=== PATIENT | male | born 1995 | race American Indian/Alaskan Native ===

== ENCOUNTER 2020-09-18 06:55 | Emergency (ER) | payer OTHER ==
[2020-09-18] MEDS ORDERED: IBUPROFEN 800 MG TAB PO ONE (07:35)
[2020-09-18] MEDS ORDERED: ACETAMINOPHEN 500 MG TAB PO ONE (07:35)
--- NOTE | 2020-09-18 07:39 | Emergency Department Report ---
ED Fall HPI - General Chief Complaint: Fall Stated Complaint: FALL, HEAD PAIN Time Seen by Provider: 09/18/20 07:30 Source: patient, EMS Mode of arrival: Stretcher - History of Present Illness Initial Comments: Chief complaint: Fall, head injury, neck pain HPI: This is a 24-year-old male without significant past medical history presents with head injury and neck pain after fall. Patient recalls slipping on wet pavement. He fell. He does remember requiring assistance getting up. He does not remember being transported to the emergency department. He has right- sided neck pain. He also has right arm and right leg tingling. Pain in the neck 4-5/10 in severity. No radiation. No other injuries. MD Complaint: fall -: Sudden, This morning Fall From: standing When Fall Occurred: 1 hour [employer] Fall Witnessed: yes, by bystander Place Fall Occurred: work Loss of Consciousness: unsure Prolonged Down Time?: no Symptoms Prior to Fall: none Location: head, neck Location - Extremities: Right: Arm, Leg Severity: mild Quality: dull Context: tripped/slipped Associated Symptoms: other (Tingling in right arm and leg) - Related Data Previous Rx's Medication Instructions Recorded Last Taken Type Cyclobenzaprine [Flexeril] 10 mg PO TID PRN #20 tablet 09/18/20 Unknown Rx Ibuprofen [Motrin 800 MG tab] 800 mg PO Q8HR PRN #20 tablet 09/18/20 Unknown Rx Allergies Allergy/AdvReac Type Severity Reaction Status Date / Time No Known Allergies Allergy Verified 09/18/20 07:17 ED Review of Systems ROS: Stated complaint: FALL, HEAD PAIN Other details as noted in HPI Comment: All other systems reviewed and negative Constitutional: denies: fever, malaise Respiratory: denies: cough, shortness of breath Cardiovascular: denies: chest pain Gastrointestinal: denies: abdominal pain, nausea, vomiting Neurological: denies: headache, weakness, numbness, paresthesias, confusion, abnormal gait ED Past Medical Hx - Past Medical History Previous Medical History?: No - Surgical History Past Surgical History?: Yes Additional Surgical History: left shoulder, left ankle - Social History Smoking Status: Never Smoker Substance Use Type: None - Medications Home Medications: Home Medications Medication Instructions Recorded Confirmed Last Taken Type Cyclobenzaprine [Flexeril] 10 mg PO TID PRN #20 tablet 09/18/20 Unknown Rx Ibuprofen [Motrin 800 MG tab] 800 mg PO Q8HR PRN #20 tablet 09/18/20 Unknown Rx ED Physical Exam - General Limitations: No Limitations General appearance: alert, in no apparent distress - Head Head exam: Present: atraumatic, normocephalic - Eye Eye exam: Present: normal appearance - ENT ENT exam: Present: mucous membranes moist - Neck Neck exam: Present: normal inspection, tenderness, full ROM, other (Tenderness over right SCM no spinal tenderness). Absent: meningismus, lymphadenopathy, thyromegaly - Respiratory Respiratory exam: Present: normal lung sounds bilaterally. Absent: respiratory distress, wheezes, rales, rhonchi - Cardiovascular Cardiovascular Exam: Present: regular rate, normal rhythm, normal heart sounds. Absent: systolic murmur, diastolic murmur, rubs, gallop - GI/Abdominal GI/Abdominal exam: Present: soft, normal bowel sounds. Absent: distended, tenderness, guarding, rebound - Rectal Rectal exam: Present: deferred - Extremities Exam Extremities exam: Present: normal inspection - Neurological Exam Neurological exam: Present: alert, oriented X3 - Psychiatric Psychiatric exam: Present: normal affect, normal mood - Skin Skin exam: Present: warm, dry, intact, normal color. Absent: rash ED Course Vital Signs 09/18/20 07:18 Temperature 98.1 F Pulse Rate 52 L Respiratory 17 Rate Blood Pressure 127/85 O2 Sat by Pulse 99 Oximetry ED Medical Decision Making - Radiology Data Radiology results: report reviewed Patient Name: ELA OBANDO Gender: Male Date of : 1995 Referring Provider: SJ KENNEDY Organization: [facility] Accession Number: [id number] Requested Date: September 18, 2020 07:34 Report Status: Final Requested Procedure: 1 Procedure Description: CT cervical spine wo con Modality: CT Findings Reporting MD: José Luis Rutledge Dictation Time: September 18, 2020 07:56 Composition Roofer: Not available C 40A Crew Chief Date: CT CERVICAL SPINE WITHOUT CONTRAST INDICATION: fall neck pain arm tingling. TECHNIQUE: Axial imaging performed through the cervical spine without the use of contrast. Sagittal and coronal reconstructed images were also reviewed. All CT scans at this location are performed using CT dose reduction for ALARA by means of automated exposure control. COMPARISON: None FINDINGS: Alignment: Spinal alignment is normal. Bones: There is no acute osseous abnormality. No significant spondylosis. No bone lesion. Soft tissues: No acute or significant incidental soft tissue abnormality. IMPRESSION: No acute abnormality. Signer Name: José Luis Rutledge Jr, MD Signed: 09/18/2020 7:56 AM Workstation Name: [id number] Patient Name: ELA OBANDO Gender: Male Date of : 1995 Referring Provider: SJ KENNEDY Organization: [facility] Accession Number: [id number] Requested Date: September 18, 2020 07:34 Report Status: Final Requested Procedure: 1 Procedure Description: CT head/brain wo con Modality: CT Findings Reporting MD: José Luis Rutledge Dictation Time: September 18, 2020 07:47 Composition Roofer: Not available C 40A Crew Chief Date: CT HEAD WITHOUT CONTRAST INDICATION / CLINICAL INFORMATION: head injury loss of consciousness. TECHNIQUE: Axial imaging performed from the skull apex through the skull base without the use of contrast. Sagittal and coronal reformatted images. All CT scans at this location are performed using CT dose reduction for ALARA by means of automated exposure control. COMPARISON: None available. FINDINGS: CEREBRAL PARENCHYMA: No significant abnormality. No acute territorial infarct. HEMORRHAGE: None. EXTRA-AXIAL SPACES: Normal in size and morphology for the patient's age. VENTRICULAR SYSTEM: Normal in size and morphology for the patient's age. MIDLINE SHIFT OR HERNIATION: None. CEREBELLUM / BRAINSTEM: No significant abnormality. CALVARIUM: No significant abnormality. ORBITS: Normal as visualized. PARANASAL SINUSES / MASTOID AIR CELLS: Normal as visualized. SOFT TISSUES of HEAD: No significant abnormality. ADDITIONAL FINDINGS: None. IMPRESSION: No acute intracranial abnormality. Signer Name: José Luis Rutledge Jr, MD Signed: 09/18/2020 7:47 AM Workstation Name: [id number] - Medical Decision Making 1. Closed head injury with loss of consciousness, amnesia: CT head without evidence of acute traumatic injury. 2. Neck pain with paresthesias in the extremities: Neurologically intact. CT cervical spine negative for acute traumatic injury. On reexamination patient did not have spinal tenderness. Normal strength in all 4 extremities. Patient prescribed ibuprofen and Flexeril. Referred to outpatient medicine phys ician as needed. Critical care attestation.: If time is entered above; I have spent that time in minutes in the direct care of this critically ill patient, excluding procedure time. ED Disposition Clinical Impression: Closed head injury with brief loss of consciousness, Cervical strain, acute, Fall from slipping on slippery surface Disposition: - TO HOME OR SELFCARE Is pt being admited?: No Does the pt Need Aspirin: No Condition: Stable Instructions: Head Injury, Adult, Cervical Sprain Prescriptions: Cyclobenzaprine [Flexeril] 10 mg PO TID PRN #20 tablet PRN Reason: Muscle Spasm Ibuprofen [Motrin 800 MG tab] 800 mg PO Q8HR PRN #20 tablet PRN Reason: Pain , Severe (7-10) Referrals: NAVID WATT MD [Staff Physician] - 3-5 Days Forms: Work/School Release Form(ED)
--- NOTE | 2020-09-18 08:51 | Cat Scan Report ---
CT HEAD WITHOUT CONTRAST INDICATION / CLINICAL INFORMATION: head injury loss of consciousness. TECHNIQUE: Axial imaging performed from the skull apex through the skull base without the use of cont rast. Sagittal and coronal reformatted images. All CT scans at this location are performed using CT dose reduction for ALARA by means of automated exposure control. COMPARISON: None available. FINDINGS: CEREBRAL PARENCHYMA: No significant abnormality. No acute territorial infarct. HEMORRHAGE: None. EXTRA-AXIAL SPACES: Normal in size and morphology for the patient's age. VENTRICULAR SYSTEM: Normal in size and morphology for the patient's age. MIDLINE SHIFT OR HERNIATION: None. CEREBELLUM / BRAINSTEM: No significant abnormality. CALVARIUM: No significant abnormality. ORBITS: Normal as visualized. PARANASAL SINUSES / MASTOID AIR CELLS: Normal as visualized. SOFT TISSUES of HEAD: No significant abnormality. ADDITIONAL FINDINGS: None. IMPRESSION: No acute intracranial abnormality. Signer Name: José Luis Rutledge Jr, MD Signed: 09/18/2020 8:47 AM Workstation Name: [id number]
--- NOTE | 2020-09-18 09:00 | Cat Scan Report ---
CT CERVICAL SPINE WITHOUT CONTRAST INDICATION: fall neck pain arm tingling. TECHNIQUE: Axial imaging performed through the cervical spine without the use of contrast. Sagittal and coronal reconstructed images were also reviewed. All CT scans at this location are performed us ing CT dose reduction for ALARA by means of automated exposure control. COMPARISON: None FINDINGS: Alignment: Spinal alignment is normal. Bones: There is no acute osseous abnormality. No significant spondylosis. No bone lesion. Soft tissues: No acute or significant incidental soft tissue abnormality. IMPRESSION: No acute abnormality. Signer Name: José Luis Rutledge Jr, MD Signed: 09/18/2020 8:56 AM Workstation Name: [id number]
[2020-09-18 09:26] VITALS: BP 130/83
== END 2020-09-18 09:30 | disposition home or self-care (01) ==
LOC: ED 06:55
DX: S06.9X9A Unspecified intracranial injury with loss of consciousness of unspecified duration, initial encounter (principal); S16.1XXA Strain of muscle, fascia and tendon at neck level, initial encounter; Z98.890 Other specified postprocedural states; Z79.899 Other long term (current) drug therapy; W01.0XXA Fall on same level from slipping, tripping and stumbling without subsequent striking against object, initial encounter; Y93.89 Activity, other specified; Y92.89 Other specified places as the place of occurrence of the external cause; Y99.0 Civilian activity done for income or pay
CPT/HCPCS: 70450; 72125

== ENCOUNTER 2020-11-28 19:57 | Observation (INO) | payer OTHER ==
--- NOTE | 2020-11-28 21:02 | Event Note ---
ED Screening Note Date of service: 11/28/20 Time: 20:57 ED Screening Note: Patient is a 25-year-old -[place] male with no past medical history presents to the ED with complaint of acute onset persistent left facial numbness and tingling, left upper arm tingling and numbness for the last 2 days. Patient states that when he first experienced the symptoms the symptoms have been persistent, intermittent and waxing and waning. Patient denies cough, chest pain, shortness of breath, change in vision, nausea and vomiting, dizziness, syncope, fall, heavy lifting, back pain, abdominal pain, fever and chills, cough, traumatic injury, heavy lifting, back pain, sore throat, or vomiting and diarrhea or diaphoresis. This initial assessment/diagnostic orders/clinical plan/treatment(s) is/are subject to change based on patients health status, clinical progression and re- assessment by fellow clinical providers in the ED. Further treatment and workup at subsequent clinical providers discretion. Patient/guardian urged not to elope from the ED as their condition may be serious if not clinically assessed and managed. Initial orders include: CBC, CMP, troponin, EKG, chest x-ray
--- NOTE | 2020-11-28 21:37 | XRay Report ---
CHEST 2 VIEWS INDICATION / CLINICAL INFORMATION: chest pain. COMPARISON: None available. FINDINGS: SUPPORT DEVICES: None. HEART / MEDIASTINUM: No significant abnormality. LUNGS / PLEURA: No significant pulmonary or pleural abnormality. No pneumothorax. ADDITIONAL FINDINGS: No significant additional findings. IMPRESSION: 1. No acute findings. Signer Name: Liliane Luong MD Signed: 11/28/2020 9:32 PM Workstation Name: [id number]
[2020-11-28 21:42] LABS: Basophils % (Auto) 0.5 % (0.0-1.8); Eosinophils % (Auto) 0.4 % (0.0-4.3); Hematocrit 43.6 % (35.5-45.6); Hemoglobin 15.2 gm/dl (11.8-15.2); Lymphocytes # (Auto) 2.9 K/mm3 (1.2-5.4); Lymphocytes % (Auto) 49.1 % (13.4-35.0); Mean Corpuscular HGB Conc 35 % (32-34); Mean Corpuscular Volume 82 fl (84-94); Monocytes # (Auto) 0.5 K/mm3 (0.0-0.8); Monocytes % (Auto) 8.7 % (0.0-7.3); Platelet Count 230 K/mm3 (140-440); Red Blood Count 5.32 M/mm3 (3.65-5.03)
[2020-11-28 21:58] LABS: Alanine Aminotransferase 13 units/L (7-56); Albumin 4.7 g/dL (3.9-5); Blood Urea Nitrogen 12 mg/dL (9-20); Hemolysis Index 2
[2020-11-28 22:01] LABS: BUN/Creatinine Ratio 17
[2020-11-28] MEDS ORDERED: SODIUM CHLORIDE 0.9% 500 ML 500 ML IV ONE (23:18)
--- NOTE | 2020-11-28 23:19 | Emergency Department Report ---
<BORIS ISAAC - Last Filed: 11/29/20 01:34> ED General Adult HPI - General Chief complaint: Chest Pain Stated complaint: My left face is numb and tingling, left arm is tingling, and my chest feels like it is caving in PUI?: No Time Seen by Provider: 11/28/20 22:54 Source: patient, RN notes reviewed, old records reviewed Mode of arrival: Ambulatory Limitations: No Limitations - History of Present Illness Initial comments: The patient was evaluated in the emergency department for symptoms described in the history of present illness. He/she was evaluated in the context of the global COVID-19 pandemic, which necessitated consideration that the patient might be at risk for infection with the virus that causes COVID-19. Institutional protocols and algorithms that pertain to the evaluation of p atients at risk for COVID-19 are in a state of rapid change based on information released by regulatory bodies including the CDC and federal and state organizations. These policies and algorithms were followed during the patient's care in the emergency department. Please note that these policies, procedures and recommendations changed on a rapid basis. The patient is a 25-year-old gentleman who is not known to myself previously. He is right-hand dominant, has a history of body mass index of 37.9, and is COVID-19 vaccinated. The patient presents to the ER with a complaint of feeling like he is having high blood pressure for the past couple weeks (reports that he is checking it at work), but does not have a formal diagnosis of high blood pressure, and over the past 2 to 3 days, having left-sided facial numbness, left arm numbness. He feels like his left arm is very slightly weaker than when compared to his right arm. He denies headache and midline neck pain. He denies abdominal pain. He denies fever, loss of taste and smell, bladder or bowel retention incontinence, and saddle anesthesia. In the past 14 hours, he has developed central nonradiating chest pressure, which does not radiate to the back, arms or neck. It is intermittent and "lasts for a few hours at a time." He denies travel, surgery, leg pain, leg swelling, DVT and pulmonary embolism risk factors. There is no pertinent family history besides high blood pressure that he is aware of. He denies recreational drug use. Of note, this patient was seen here in September of this year for slip and fall, with head and neck trauma. At that time, he had a CT scan of his head and cervical spine which were negative for acute findings. - Related Data Previous Rx's Medication Instructions Recorded Last Taken Type Cyclobenzaprine [Flexeril] 10 mg PO TID PRN #20 tablet 09/18/20 Unknown Rx Ibuprofen [Motrin 800 MG tab] 800 mg PO Q8HR PRN #20 tablet 09/18/20 Unknown Rx Allergies Allergy/AdvReac Type Severity Reaction Status Date / Time No Known Allergies Allergy Verified 09/18/20 07:17 ED Review of Systems Constitutional: other (Denies loss of taste and smell). denies: fever, malaise, weakness Eyes: denies: eye discharge, vision change ENT: denies: epistaxis Respiratory: denies: cough Cardiovascular: chest pain Gastrointestinal: denies: abdominal pain, nausea, vomiting, hematemesis, melena, hematochezia Musculoskeletal: denies: back pain Neurological: weakness, numbness, paresthesias Hematological/Lymphatic: denies: easy bleeding ED Past Medical Hx - Past Medical History Previous Medical History?: Yes Hx Asthma: Yes - Surgical History Past Surgical History?: Yes Additional Surgical History: left shoulder, left ankle left hand surgery - Social History Smoking Status: Never Smoker Substance Use Type: None - Medications Home Medications: Home Medications Medication Instructions Recorded Confirmed Last Taken Type Cyclobenzaprine [Flexeril] 10 mg PO TID PRN #20 tablet 09/18/20 Unknown Rx Ibuprofen [Motrin 800 MG tab] 800 mg PO Q8HR PRN #20 tablet 09/18/20 Unknown Rx ED Physical Exam - General Limitations: No Limitations General appearance: alert, anxious, obese - Head Head exam: Present: atraumatic, normocephalic - Eye Eye exam: Present: normal appearance, PERRL, EOMI. Absent: nystagmus - ENT ENT exam: Present: normal exam, normal orophraynx, mucous membranes moist, TM's normal bilaterally, normal external ear exam, other (No vesicles are noted.) - Neck Neck exam: Present: normal inspection, full ROM. Absent: tenderness, meningismu s - Respiratory Respiratory exam: Present: normal lung sounds bilaterally. Absent: respiratory distress, wheezes, rales, rhonchi, stridor - Cardiovascular Cardiovascular Exam: Present: normal rhythm, bradycardia, normal heart sounds. Absent: tachycardia, irregular rhythm, systolic murmur, diastolic murmur, rubs, gallop - GI/Abdominal GI/Abdominal exam: Present: soft. Absent: distended, tenderness, rebound, rigid, pulsatile mass - Rectal Rectal exam: Present: deferred - Extremities Exam Extremities exam: Present: normal inspection, full ROM, other (2+ pulses noted in the bilateral upper and lower extremities. There is no palpable cord. negative Homans sign. Muscular compartments are soft. The pelvis is stable.). Absent: pedal edema, calf tenderness - Back Exam Back exam: Present: normal inspection. Absent: tenderness, CVA tenderness (R), CVA tenderness (L), paraspinal tenderness, vertebral tenderness - Neurological Exam Neurological exam: Present: alert, oriented X3, normal gait, motor sensory deficit (There is decrease sensation to light touch in the left upper extremity. There is 4 out of 5 strength in the left upper extremity.), reflexes normal (Downgoing plantar reflexes bilaterally. 2+ biceps, triceps, and quadriceps reflexes bilaterally.), other (5 out of 5 strength right arm, and bilateral lower extremities). Absent: CN II-XII intact (There is decreased sensation to light touch in the left face in the left V1, V2 distribution. EOMI. Tongue midline. Shoulder shrug intact bilaterally. Hearing intact bilaterally. Phonating in complete sentences. Visual acuity intact to finger counting, color perception, reading at a close dist) - Psychiatric Psychiatric exam: Present: normal affect, normal mood - Skin Skin exam: Present: warm, dry, intact, normal color. Absent: rash ED Course - Reevaluation(s) Reevaluation #1: 11/29/20 00:51 Differential diagnosis, including the not limited to: Subacute stroke, cervical radiculopathy, carotid dissection, aortic dissection, coronary artery disease, pneumonia, GERD, gastritis, hiatal hernia Assessment and plan: 25-year-old gentleman, who was afebrile, with reassuring vital signs, with exception of elevated blood pressure, clinically sober, presenting to the ER with 48 hours of nonspecific neurologic symptoms, and atypical chest pain that has developed within the past 24 hours. This patient was seen for blunt head and neck trauma September of this year. Given neurologic symptoms, we will obtain CT scan of the brain, and CT angiogram head and neck to evaluate for carotid dissection, large vessel occlusion. The patient is not a TPA candidate as his symptoms have been present for greater than 4.5 hours. His examination at this time is not suggestive of emergent epidural compression. He is not currently tachycardic, tachypneic or hypoxic. He denies DVT and pulmonary embolism risk factors, he is low risk by Wells criteria for pulmonary embolism, and he is PERC negative. He has equal pulses in the upper and lower extremities, no pulsatile abdominal mass, if he does indeed have a proximal aortic dissection, it will be visualized on CT angiogram head and neck. He denies lower abdominal pain and back pain. Therefore, distal dissection is very unlikely. We have recommended admission to the medical service once initial diagnostics have resulted. I have discussed this plan of care with the patient. He is articulated understanding. Reassess after CT scan brain, CT angiogram head and neck have resulted. Assuming no finding is identified that would require emergent transfer for endovascular intervention, or subspecialty services not available at this facility, have recommended admission to the medical service for further diagnostic work-up and evaluation. I did discuss this plan of care with the patient. He is agreeable to this plan of care. 11/29/20 00:55 11/29/20 01:34 care will be transferred to the overnight ER physician to follow up o ct head, cta head/ neck, give aspirin if negative, and arrange admission to I[facility] - Consultations Consultation #1: 11/29/20 01:34 Discussed history, physical, laboratory studies, physical exam, and my overall plan of care and clinical impression with neurology on-call, Dr. Lucio. He is in agreement with the plan of care. His recommendations are appreciated ED Medical Decision Making - Lab Data Result diagrams: 11/28/20 21:09 11/28/20 21:09 Vital Signs 11/28/20 20:48 Temperature 98.3 F Pulse Rate 60 Respiratory 16 Rate Blood Pressure 148/96 O2 Sat by Pulse 99 Oximetry Lab Results 11/28/20 11/28/20 Range/Units 21:09 21:09 WBC 5.9 (4.5-11.0) K/mm3 RBC 5.32 H (3.65-5.03) M/mm3 Hgb 15.2 (11.8-15.2) gm/dl Hct 43.6 (35.5-45.6) % MCV 82 L (84-94) fl MCH 29 (28-32) pg MCHC 35 H (32-34) % RDW 14.0 (13.2-15.2) % Plt Count 230 (140-440) K/mm3 Lymph % (Auto) 49.1 H (13.4-35.0) % [place] % (Auto) 8.7 H (0.0-7.3) % Eos % (Auto) 0.4 (0.0-4.3) % Baso % (Auto) 0.5 (0.0-1.8) % Lymph # (Auto) 2.9 (1.2-5.4) K/mm3 [place] # (Auto) 0.5 (0.0-0.8) K/mm3 Eos # (Auto) 0.0 (0.0-0.4) K/mm3 Baso # (Auto) 0.0 (0.0-0.1) K/mm3 Seg Neutrophils % 41.3 (40.0-70.0) % Seg Neutrophils # 2.4 (1.8-7.7) K/mm3 Sodium 140 (137-145) mmol/L Potassium 4.0 (3.6-5.0) mmol/L Chloride 103.7 (98-107) mmol/L Carbon Dioxide 26 (22-30) mmol/L Anion Gap 14 mmol/L BUN 12 (9-20) mg/dL Creatinine 0.7 L (0.8-1.3) mg/dL Estimated GFR > 60 ml/min BUN/Creatinine Ratio 17 % Glucose 80 (75-100) mg/dL Calcium 10.0 (8.4-10.2) mg/dL Total Bilirubin 0.40 (0.1-1.2) mg/dL AST 17 (5-40) units/L ALT 13 (7-56) units/L Alkaline Phosphatase 72 (35-129) units/L Troponin T < 0.010 (0.00-0.029) ng/mL Total Protein 7.8 (6.3-8.2) g/dL Albumin 4.7 (3.9-5) g/dL Albumin/Globulin Ratio 1.5 % - EKG Data -: EKG Interpreted by Or EKG shows normal: sinus rhythm Rate: bradycardia - EKG Data When compared to previous EKG there are: previous EKG unavailable 11/29/20 00:49 The EKG is interpreted at 21: 01 Sinus rhythm, bradycardia, 51 bpm. Normal axis, normal intervals. Nonspecific T wave abnormalities 1, aVL, V5 and V6. This is an abnormal EKG. This is not a STEMI. There is no prior EKG available for comparison. - Radiology Data Radiology results: pending, report reviewed, image reviewed CHEST 2 VIEWS INDICATION / CLINICAL INFORMATION: chest pain. COMPARISON: None available. FINDINGS: SUPPORT DEVICES: None. HEART / MEDIASTINUM: No significant abnormality. LUNGS / PLEURA: No significant pulmonary or pleural abnormality. No pneumothorax. ADDITIONAL FINDINGS: No significant additional findings. IMPRESSION: 1. No acute findings. Signer Name: Liliane Luong MD Signed: 11/28/2020 8:32 PM Workstation Name: [id number] CT CERVICAL SPINE WITHOUT CONTRAST INDICATION: fall neck pain arm tingling. TECHNIQUE: Axial imaging performed through the cervical spine without the use of contrast. Sagittal and coronal reconstructed images were also reviewed. All CT scans at this location are performed using CT dose reduction for ALARA by means of automated exposure control. COMPARISON: None FINDINGS: Alignment: Spinal alignment is normal. Bones: There is no acute osseous abnormality. No significant spondylosis. No bone lesion. Soft tissues: No acute or significant incidental soft tissue abnormality. IMPRESSION: No acute abnormality. Signer Name: José Luis Rutledge Jr, MD Signed: 09/18/2020 7:56 AM Workstation Name: [id number] CT HEAD WITHOUT CONTRAST INDICATION / CLINICAL INFORMATION: head injury loss of consciousness. TECHNIQUE: Axial imaging performed from the skull apex through the skull base without the use of contrast. Sagittal and coronal reformatted images. All CT scans at this location are performed using CT dose reduction for ALARA by means of automated exposure control. COMPARISON: None available. FINDINGS: CEREBRAL PARENCHYMA: No significant abnormality. No acute territorial infarct. HEMORRHAGE: None. EXTRA-AXIAL SPACES: Normal in size and morphology for the patient's age. VENTRICULAR SYSTEM: Normal in size and morphology for the patient's age. MIDLINE SHIFT OR HERNIATION: None. CEREBELLUM / BRAINSTEM: No significant abnormality. CALVARIUM: No significant abnormality. ORBITS: Normal as visualized. PARANASAL SINUSES / MASTOID AIR CELLS: Normal as visualized. SOFT TISSUES of HEAD: No significant abnormality. ADDITIONAL FINDINGS: None. IMPRESSION: No acute intracranial abnormality. Signer Name: José Luis Rutledge Jr, MD Signed: 09/18/2020 7:47 AM Workstation Name: [id number] ED Disposition Clinical Impression: Left facial numbness, Left arm numbness, Acute chest pain, BMI 37.0-37.9, adult Disposition: 09 ADMITTED INPATIENT Is pt being admited?: Yes Condition: Good Instructions: Chest Pain (ED) Heart Score - HEART Score History: Slightly suspicious EKG: Non-specific Age: < 45 Risk factors: 1-2 risk factors Troponin: < normal limit HEART Score: 2 - EKG Read Time Time EKG Completed: 21:01 EKG Read Time: 21:01 - Critical Actions Critical Actions: 0-3 pts:0.9-1.7%risk of adverse cardiac event.Candidate for discharge - Assessment Assessment Interval: Baseline - Level of Consciousness 1a. Level of Consciousness: alert/keenly responsive - LOC Questions 1b. LOC Questions: answers both correctly - LOC Command 1c. LOC Commands: performs tasks correctly - Best Gaze 2. Best Gaze: normal - Visual 3. Visual: no visual loss - Facial Palsy 4. Facial Palsy: normal symmetrical movement - Motor Arm 5a. Motor Arm Left: no drift 5b. Motor Arm Right: no drift - Motor Leg 6a. Motor Leg Left: no drift 6b. Motor Leg Right: no drift - Limb Ataxia 7. Limb Ataxia: absent - Sensory 8. Sensory: mild/moderate sensory loss - Best Language 9. Best Language: no aphasia - Dysarthria 10. Dysarthria: normal - Extinction and Inattention 11. Extinction/Inattention: no abnormality - Scoring Total Score: 1 Stroke Severity: Minor Stroke <ERYN KENNEDY - Last Filed: 11/29/20 03:26> ED Review of Systems ROS: Stated complaint: My left face is numb and tingling, left arm is tingling, and my chest feels like it is caving in Other details as noted in HPI ED Course Vital Signs 11/28/20 20:48 Temperature 98.3 F Pulse Rate 60 Respiratory 16 Rate Blood Pressure 148/96 O2 Sat by Pulse 99 Oximetry ED Medical Decision Making - Lab Data Result diagrams: 11/28/20 21:09 11/28/20 21:09 - Radiology Data CT HEAD WITHOUT CONTRAST INDICATION / CLINICAL INFORMATION: left sided facial numbness, left arm numbness/weak. TECHNIQUE: All CT scans at this location are performed using CT dose reduction for ALARA by means of automated exposure control. COMPARISON: None available. FINDINGS: No acute intracranial hemorrhage. Ventricles are normal in size without midline shift or mass effect. No extra-axial fluid collection is. Visualized orbits appear normal. ADDITIONAL FINDINGS: None. IMPRESSION: 1. No acute intracranial abnormality. Signer Name: Rk Moore MD Signed: 11/29/2020 2:47 AM Workstation Name: [id number] [facility] [address] [place] [address] Cat Scan Report Signed Patient: ELA OBANDO MR#: [id number] 25 : 1995 Acct:[id number] Age/Sex: 25 / M ADM Date: 11/28/20 Loc: ED Attending Dr: Ordering Physician: BORIS ISAAC MD Date of Service: 11/28/20 Procedure(s): CT angio neck Accession Number(s): [id number] cc: BORIS ISAAC MD CT angio neck INDICATION / CLINICAL INFORMATION: 25 years Male; left sided facial numbness, left arm numbness/weak. TECHNIQUE: Thin cut axial images obtained through the head during IV bolus contrast administration. Sagittal, coronal, and 3 plane MIP reconstructions performed by the technologist. NASCET type criteria used evaluate stenoses. All CT scans at this location are performed using CT dose reduction for ALARA by means of automated exposure control. COMPARISON: None available. FINDINGS: CAROTID ARTERIES: The motion and beam hardening from the patient's body habitus degrades the image quality particularly obscures the proximal vessels. However, there is no CTA evidence of significant stenosis involving cervical carotid arteries by NASCET criteria. The carotid bifurcations are widely patent. The vessel arvizu appear to demonstrate appropriate contour. VERTEBRAL ARTERIES: The vertebral arteries also appear to demonstrate appropriate caliber without clear evidence of significant focal stenosis. ARCH: There is no significant narrowing involving origins of the arch vessels. ADDITIONAL FINDINGS: Remainder of the surrounding soft tissues are grossly normal. IMPRESSION: The motion and beam hardening degrade the image quality. However, there is no CTA evidence of significant stenosis involving visualized cervical carotid or vertebral arteries by NASCET criteria. Signer Name: Boris Yan MD Signed: 11/29/2020 2:57 AM Workstation Name: [id number] Transcribed By: MR Dictated By: Boris Yan MD Electronically Authenticated By: Boris Yan MD Signed Date/Time: 11/29/[address] angio head INDICATION / CLINICAL INFORMATION: 25 years Male; left sided facial numbness, left arm numbness/weak. TECHNIQUE: Thin cut axial images obtained through the head during IV bolus contrast administration. Sagittal, coronal, and 3 plane MIP reconstructions performed by the technologist. NASCET type criteria used evaluate stenoses. Automated exposure control utilized for radiation reduction purposes. COMPARISON: None available. FINDINGS: INTERNAL CAROTID ARTERIES: The motion and beam hardening degrade the image quality. However, the distal internal carotid arteries appear to demonstrate appropriate caliber without significant focal stenosis. VERTEBROBASILAR SYSTEM: The vertebrobasilar system also demonstrate appropriate caliber without significant focal narrowing. CEREBRAL ARTERIES: The motion particularly obscures evaluation of the cerebral arteries. However, the proximal cerebral arteries and adjacent segments also appear to demonstrate appropriate caliber without clear evidence of significant stenosis or large vessel occlusion. ANEURYSM: None identified. ADDITIONAL FINDINGS: The dural venous sinuses opacify with contrast. IMPRESSION: The beam hardening degrades the image quality. However, there is no clear CTA evidence of large vessel occlusion. Signer Name: Boris Yan MD Signed: 11/29/2020 3:03 AM Workstation Name: [id number] - Medical Decision Making Patient is a 25-year-old F [place] male with hypertension and obesity who is presenting with some left arm and facial numbness and weakness. CT of the head shows no intracranial process which appears acute CTA of the head and neck also normal for any obstructive lesions. Patient to be admitted for MRI. Critical care attestation.: If time is entered above; I have spent that time in minutes in the direct care of this critically ill patient, excluding procedure time. ED Disposition Is pt being admited?: Yes Does the pt Need Aspirin: No Time of Disposition: 03:26
--- NOTE | 2020-11-29 01:10 | Consultation ---
History of Present Illness History of present illness: [facility] Consult Note # Demographics Consult Type: General Neurology Patient Location: Emergency Room First Name: Damaso Last Name: Lyubov Date of : 1995 Age: 25 Gender: Male Facility: [facility] Time of Initial Page ( Time): 11/29/2020, 01:02 Time of Return Call ( Time): 11/29/2020, 01:02 Phone Only Consult: 25M with obesity and HTN presents with 2 days of left facial and arm numbness. NIHSS 1 for decreased sensation in the left face and arm. Slight left hand weakness. No neck pain. New chest pain today, with negative troponin but abnormal ECG. Did have a fall with head strike in September with negative CT head and CT C-spine imaging at the time and was discharged with a normal exam. Agree with plan for CT head, CTA head/neck to rule out dissection. If no ICH, would give ASA 325, atorvastatin 80, and admit for stroke work-up. Discussed with ED attending, Dr. Long. # Logistics Telemedicine: phone only Electronically signed at 11/29/2020 01:10 ( Time) by Naveed Harvey MD Medications and Allergies Allergies Allergy/AdvReac Type Severity Reaction Status Date / Time No Known Allergies Allergy Verified 09/18/20 07:17 Home Medications Medication Instructions Recorded Confirmed Last Taken Type Cyclobenzaprine [Flexeril] 10 mg PO TID PRN #20 tablet 09/18/20 Unknown Rx Ibuprofen [Motrin 800 MG tab] 800 mg PO Q8HR PRN #20 tablet 09/18/20 Unknown Rx Physical Examination - Vital Signs Vital Signs: Vital Signs Temp Pulse Resp BP Pulse Ox 98.3 F 60 16 148/96 99 11/28/20 20:48 11/28/20 20:48 11/28/20 20:48 11/28/20 20:48 11/28/20 20:48 Results - Laboratory Findings CBC and BMP: 11/28/20 21:09 11/28/20 21:09 Abnormal Lab Findings: Abnormal Labs 11/28/20 11/28/20 21:09 21:09 RBC 5.32 H MCV 82 L MCHC 35 H Lymph % (Auto) 49.1 H [place] % (Auto) 8.7 H Creatinine 0.7 L
--- NOTE | 2020-11-29 02:51 | Cat Scan Report ---
CT HEAD WITHOUT CONTRAST INDICATION / CLINICAL INFORMATION: left sided facial numbness, left arm numbness/weak. TECHNIQUE: All CT scans at this location are performed using CT dose reduction for ALARA by means of automated e xposure control. COMPARISON: None available. FINDINGS: No acute intracranial hemorrhage. Ventricles are normal in size without midline shift or mass effect. No extra-axial fluid collection is. Visualized orbits appear normal. ADDITIONAL FINDINGS: None. IMPRESSION: 1. No acute intracranial abnormality. Signer Name: Rk Moore MD Signed: 11/29/2020 2:47 AM Workstation Name: [id number]
--- NOTE | 2020-11-29 03:02 | Cat Scan Report ---
CT angio neck INDICATION / CLINICAL INFORMATION: 25 years Male; left sided facial numbness, left arm numbness/weak. TECHNIQUE: Thin cut axial images obtained through the head during IV bolus contrast administration. S agittal, coronal, and 3 plane MIP reconstructions performed by the technologist. NASCET type criteria used evaluate stenoses. All CT scans at this location are performed using CT dose reduction for ALAR A by means of automated exposure control. COMPARISON: None available. FINDINGS: CAROTID ARTERIES: The motion and beam hardening from the patient's body habitus degrades the image qu ality particularly obscures the proximal vessels. However, there is no CTA evidence of significant st enosis involving cervical carotid arteries by NASCET criteria. The carotid bifurcations are widely pa tent. The vessel arvizu appear to demonstrate appropriate contour. VERTEBRAL ARTERIES: The vertebral arteries also appear to demonstrate appropriate caliber without hitesh ar evidence of significant focal stenosis. ARCH: There is no significant narrowing involving origins of the arch vessels. ADDITIONAL FINDINGS: Remainder of the surrounding soft tissues are grossly normal. IMPRESSION: The motion and beam hardening degrade the image quality. However, there is no CTA evidence of signifi cant stenosis involving visualized cervical carotid or vertebral arteries by NASCET criteria. Signer Name: Boris Yan MD Signed: 11/29/2020 2:57 AM Workstation Name: [id number]
--- NOTE | 2020-11-29 03:07 | Cat Scan Report ---
CT angio head INDICATION / CLINICAL INFORMATION: 25 years Male; left sided facial numbness, left arm numbness/weak. TECHNIQUE: Thin cut axial images obtained through the head during IV bolus contrast administration. S agittal, coronal, and 3 plane MIP reconstructions performed by the technologist. NASCET type criteria used evaluate stenoses. Automated exposure control utilized for radiation reduction purposes. COMPARISON: None available. FINDINGS: INTERNAL CAROTID ARTERIES: The motion and beam hardening degrade the image quality. However, the dist al internal carotid arteries appear to demonstrate appropriate caliber without significant focal sten osis. VERTEBROBASILAR SYSTEM: The vertebrobasilar system also demonstrate appropriate caliber without signi ficant focal narrowing. CEREBRAL ARTERIES: The motion particularly obscures evaluation of the cerebral arteries. However, the proximal cerebral arteries and adjacent segments also appear to demonstrate appropriate caliber with out clear evidence of significant stenosis or large vessel occlusion. ANEURYSM: None identified. ADDITIONAL FINDINGS: The dural venous sinuses opacify with contrast. IMPRESSION: The beam hardening degrades the image quality. However, there is no clear CTA evidence of large vesse l occlusion. Signer Name: Boris Yan MD Signed: 11/29/2020 3:03 AM Workstation Name: [id number]
[2020-11-29] MEDS ORDERED: oxyCODONE /ACETAMINOPHEN 5-325MG TAB PO PRN (04:39)
[2020-11-29] MEDS ORDERED: ACETAMINOPHEN 325 MG TAB PO PRN ×2 (04:39)
[2020-11-29] MEDS ORDERED: ONDANSETRON 4 MG/2 ML INJ IV PRN (04:39)
[2020-11-29] MEDS ORDERED: HYDROmorphone 1 MG/1 ML INJ IV PRN (04:39)
[2020-11-29] MEDS ORDERED: traMADol 50 MG TAB PO PRN (04:39)
[2020-11-29] MEDS ORDERED: ALBUTEROL 2.5 MG/3 ML NEBU IH PRN (04:39)
[2020-11-29] MEDS ORDERED: NITROGLYCERIN 0.4 MG TAB SUBL SL PRN (04:39)
[2020-11-29] MEDS ORDERED: IBUPROFEN 800 MG TAB PO PRN (04:47)
[2020-11-29] MEDS ORDERED: CYCLOBENZAPRINE 10 MG TAB PO PRN (04:47)
[2020-11-29] MEDS ORDERED: hydrALAZINE 20 MG/1 ML INJ IV PRN (04:49)
--- NOTE | 2020-11-29 04:54 | History and Physical Report ---
History of Present Illness Date of examination: 11/29/20 Date of admission: 11/29/20 Chief complaint: Chest pain Left arm and facial numbness History of present illness: 25-year-old gentleman with past medical history of hypertension and obesity was brought to the emergency room because of feeling like he is having high blood pressure for the past couple weeks (reports that he is checking it at work), but does not have a formal diagnosis of high blood pressure, and over the past 2 to 3 days, having left-sided facial numbness, left arm numbness. He feels like his left arm is very slightly weaker than when compared to his right arm. He denies headache and midline neck pain. He denies abdominal pain. He denies fever, loss of taste and smell, bladder or bowel retention incontinence, and saddle anesthesia. In the past 14 hours, he has developed central nonradiating chest pressure, which does not radiate to the back, arms or neck. It is intermittent and "lasts for a few hours at a time." He denies travel, surgery, leg pain, leg swelling, DVT and pulmonary embolism risk factors. There is no pertinent family history besides high blood pressure that he is aware of. He denies recreational drug use. patient was seen here in September of this year for slip and fall, with head and neck trauma. At that time, he had a CT scan of his head and cervical spine which were negative for acute findings. In the emergency room initial cardiac enzyme is negative troponin is 0.010. Initial CT scan of the head shows no acute intracranial abnormality Med rec is done. Advance discharge process is initiated Past History Past Medical History: hypertension, other (Obesity) Medications and Allergies Allergies Allergy/AdvReac Type Severity Reaction Status Date / Time No Known Allergies Allergy Verified 09/18/20 07:17 Home Medications Medication Instructions Recorded Confirmed Last Taken Type Cyclobenzaprine [Flexeril] 10 mg PO TID PRN #20 tablet 09/18/20 Unknown Rx Ibuprofen [Motrin 800 MG tab] 800 mg PO Q8HR PRN #20 tablet 09/18/20 Unknown Rx Active Meds: Active Medications Acetaminophen (Acetaminophen 325 Mg Tab) 650 mg PO Q4H PRN PRN Reason: Pain MILD(1-3)/Fever >100.5/YODER Acetaminophen (Acetaminophen 325 Mg Tab) 650 mg PO Q6H PRN PRN Reason: Pain, Mild (1-3) Albuterol (Albuterol 2.5 Mg/3 Ml Nebu) 2.5 mg IH Q4HRT PRN PRN Reason: Shortness Of Breath Albuterol/Ipratropium (Ipratropium/Albuterol Sulfate 3 Ml Ampul.Neb) 1 ampul IH Q6HRT [facility] Aspirin (Aspirin Ec 325 Mg Tab) 325 mg PO QDAY [facility] Atorvastatin Calcium (Atorvastatin 40 Mg Tab) 40 mg PO QHS [facility] Cyclobenzaprine HCl (Cyclobenzaprine 10 Mg Tab) 10 mg PO TID PRN PRN Reason: Muscle Spasm Famotidine (Famotidine 20 Mg Tab) 20 mg PO BID [facility] Heparin Sodium (Porcine) (Heparin 5,000 Unit/1 Ml Vial) 5,000 unit SUB-Q Q8HR [facility] Hydromorphone HCl (Hydromorphone 1 Mg/1 Ml Inj) 0.5 mg IV Q3H PRN PRN Reason: Pain , Severe (7-10) Sodium Chloride (Nacl 0.9% 1000 Ml) 1,000 mls @ 100 mls/hr IV DIRECT [facility] Ibuprofen (Ibuprofen 800 Mg Tab) 800 mg PO Q8HR PRN PRN Reason: Pain , Severe (7-10) Nitroglycerin (Nitroglycerin 0.4 Mg Tab Subl) 0.4 mg SL Q5M PRN PRN Reason: Chest Pain Ondansetron HCl (Ondansetron 4 Mg/2 Ml Inj) 4 mg IV Q8H PRN PRN Reason: Nausea And Vomiting Oxycodone/Acetaminophen (Oxycodone /Acetaminophen 5-325mg Tab) 1 tab PO Q6H PRN PRN Reason: Pain, Moderate (4-6) Sodium Chloride (Sodium Chloride 0.9% 10 Ml Flush Syringe) 10 ml IV BID [facility] Sodium Chloride (Sodium Chloride 0.9% 10 Ml Flush Syringe) 10 ml IV PRN PRN PRN Reason: LINE FLUSH Sodium Chloride (Sodium Chloride 0.9% 10 Ml Flush Syringe) 10 ml IV PRN PRN PRN Reason: LINE FLUSH Sodium Chloride (Sodium Chloride 0.9% 10 Ml Flush Syringe) 10 ml INJ PRN PRN PRN Reason: LINE FLUSH Tramadol HCl (Tramadol 50 Mg Tab) 50 mg PO Q6H PRN PRN Reason: Pain, Moderate (4-6) Review of Systems All systems: negative Cardiovascular: chest pain Neurological: parathesias, numbness, other (Numbness of the left side of the face and left upper extremity) Exam - Constitutional Vitals: Temp Pulse Resp BP Pulse Ox 98.3 F 60 16 148/96 99 11/28/20 20:48 11/28/20 20:48 11/28/20 20:48 11/28/20 20:48 11/28/20 20:48 General appearance: Present: no acute distress, well-nourished - EENT Eyes: Present: PERRL ENT: hearing intact, clear oral mucosa - Neck Neck: Present: supple, normal ROM - Respiratory Respiratory effort: normal Respiratory: bilateral: diminished - Cardiovascular Heart Sounds: Present: S1 & S2. Absent: rub, click - Extremities Extremities: pulses symmetrical, No edema Peripheral Pulses: within normal limits - Abdominal General gastrointestinal: Present: soft, non-tender, non-distended, normal bowel sounds Male genitourinary: Present: normal - Integumentary Integumentary: Present: clear, warm, dry - Musculoskeletal Musculoskeletal: gait normal, strength equal bilaterally - Psychiatric Psychiatric: appropriate mood/affect, intact judgment & insight - Neurologic Neurologic: CNII-XII intact, moves all extremities, other (Left facial numbness and left upper arm numbness) HEART Score - HEART Score EKG: Non-specific Age: < 45 Risk factors: 1-2 risk factors Troponin: Troponin T < 0.010 ng/mL (0.00-0.029) 11/28/20 21:09 Troponin: < normal limit - Critical Actions Critical Actions: 0-3 pts:0.9-1.7%risk of adverse cardiac event.Candidate for discharge Results - Labs CBC & Chem 7: 11/28/20 21:09 11/28/20 21:09 Labs: Laboratory Last Values WBC 5.9 K/mm3 (4.5-11.0) 11/28/20 21:09 RBC 5.32 M/mm3 (3.65-5.03) H 11/28/20 21:09 Hgb 15.2 gm/dl (11.8-15.2) 11/28/20 21:09 Hct 43.6 % (35.5-45.6) 11/28/20 21:09 MCV 82 fl (84-94) L 11/28/20 21:09 MCH 29 pg (28-32) 11/28/20 21:09 MCHC 35 % (32-34) H 11/28/20 21:09 RDW 14.0 % (13.2-15.2) 11/28/20 21:09 Plt Count 230 K/mm3 (140-440) 11/28/20 21:09 Lymph % (Auto) 49.1 % (13.4-35.0) H 11/28/20 21:09 Spencer % (Auto) 8.7 % (0.0-7.3) H 11/28/20 21:09 Eos % (Auto) 0.4 % (0.0-4.3) 11/28/20 21:09 Baso % (Auto) 0.5 % (0.0-1.8) 11/28/20 21:09 Lymph # (Auto) 2.9 K/mm3 (1.2-5.4) 11/28/20 21:09 Spencer # (Auto) 0.5 K/mm3 (0.0-0.8) 11/28/20 21:09 Eos # (Auto) 0.0 K/mm3 (0.0-0.4) 11/28/20 21:09 Baso # (Auto) 0.0 K/mm3 (0.0-0.1) 11/28/20 21:09 Seg Neutrophils % 41.3 % (40.0-70.0) 11/28/20 21:09 Seg Neutrophils # 2.4 K/mm3 (1.8-7.7) 11/28/20 21:09 Sodium 140 mmol/L (137-145) 11/28/20 21:09 Potassium 4.0 mmol/L (3.6-5.0) 11/28/20 21:09 Chloride 103.7 mmol/L (98-107) 11/28/20 21:09 Carbon Dioxide 26 mmol/L (22-30) 11/28/20 21:09 Anion Gap 14 mmol/L 11/28/20 21:09 BUN 12 mg/dL (9-20) 11/28/20 21:09 Creatinine 0.7 mg/dL (0.8-1.3) L 11/28/20 21:09 Estimated GFR > 60 ml/min 11/28/20 21:09 BUN/Creatinine Ratio 17 % 11/28/20 21:09 Glucose 80 mg/dL (75-100) 11/28/20 21:09 Calcium 10.0 mg/dL (8.4-10.2) 11/28/20 21:09 Total Bilirubin 0.40 mg/dL (0.1-1.2) 11/28/20 21:09 AST 17 units/L (5-40) 11/28/20 21:09 ALT 13 units/L (7-56) 11/28/20 21:09 Alkaline Phosphatase 72 units/L (35-129) 11/28/20 21:09 Troponin T < 0.010 ng/mL (0.00-0.029) 11/28/20 21:09 Total Protein 7.8 g/dL (6.3-8.2) 11/28/20 21:09 Albumin 4.7 g/dL (3.9-5) 11/28/20 21:09 Albumin/Globulin Ratio 1.5 % 11/28/20 21:09 - Imaging and Cardiology CT Scan - head: report reviewed Assessment and Plan VTE prophylaxis?: Chemical Plan of care discussed with patient/family: Yes - Patient Problems (1) Acute coronary syndrome Current Visit: Yes Status: Acute Plan to address problem: Admit the patient to the medical telemetry. Aspirin 325 mg p.o. daily. Lipitor 40 mg p.o. daily. Nitroglycerin as needed. We do the serial cardiac enzymes we also do a Lexiscan. Consult cardiology if needed. Heparin 5000 units subcu lucas ry 8 hours. Recheck CBC BMP in the morning (2) Left arm numbness Current Visit: Yes Status: Acute Plan to address problem: Aspirin 325 mg p.o. daily. Lipitor 40 mg p.o. daily. MRI of the brain with and without contrast. MRI of the brain and neck with and without contrast. Reconsult PT OT any speech evaluation. Echocardiogram. Will consult neurology for evaluation. Patient already seen and evaluated by telemetry neurology (3) Left facial numbness Current Visit: Yes Status: Acute Plan to address problem: Aspirin 325 mg p.o. daily. Lipitor 40 mg p.o. daily. MRI of the brain with and without contrast. MRI of the brain and neck with and without contrast. Reconsult PT OT any speech evaluation. Echocardiogram. Will consult neurology for evaluation. Patient already seen and evaluated by telemetry neurology (4) BMI 37.0-37.9, adult Current Visit: Yes Status: Acute Plan to address problem: Patient counseled regarding weight loss. (5) Hypertension Current Visit: Yes Status: Acute Plan to address problem: Hydralazine 10 mg IV every 6 hours as needed. We will continue the home medication. We will monitor the blood pressure closely (6) DVT prophylaxis Current Visit: Yes Status: Acute Plan to address problem: Heparin 5000 units subcu every 8 hours for DVT prophylaxis. Pepcid 20 mg p.o. twice daily for GI prophylaxis. Patient is a full code
[2020-11-29] MEDS ORDERED: SODIUM CHLORIDE 0.9% 1000 ML 1,000 ML IV SCH (05:00)
[2020-11-29 05:51] LABS: Hematocrit 42.5 % (35.5-45.6); Hemoglobin 14.6 gm/dl (11.8-15.2); Mean Corpuscular HGB Conc 34 % (32-34); Mean Corpuscular Volume 82 fl (84-94); Platelet Count 217 K/mm3 (140-440); Red Blood Count 5.17 M/mm3 (3.65-5.03); Red Cell Distribution Width 13.6 % (13.2-15.2)
[2020-11-29 06:08] LABS: BUN/Creatinine Ratio 15; Blood Urea Nitrogen 12 mg/dL (9-20); Calcium 9.4 mg/dL (8.4-10.2); Hemolysis Index 46
[2020-11-29 06:41] LABS: Anisocytosis 1+; Platelet Estimate Consistent w Auto; Total Cells Counted 100
[2020-11-29] MEDS: HEPARIN 5,000 UNIT/1 ML VIAL SUB-Q SCH ×2 (07:51→13:51)
[2020-11-29] MEDS: IPRATROPIUM/ALBUTEROL SULFATE 3 ML AMPUL.NEB IH SCH ×2 (08:14→13:51)
[2020-11-29] MEDS ORDERED: FAMOTIDINE 20 MG TAB PO SCH (10:00)
--- NOTE | 2020-11-29 14:31 | Discharge Summary ---
Providers - Providers Date of Admission: 11/29/20 04:40 Date of discharge: 11/29/20 Attending physician: DOMINIK ARNOLD 11/29/20 Consult to Cardiac Rehabilitation [CONS] Routine Reason For Exam: Phase I Consult to Physician [CONS] Routine Comment: Consulting Provider: SENTHIL MCCLENDON Physician Instructions: Reason For Exam: cva 11/29/20 04:40 Occupational Therapy Evaluate and Treat [CONS] Routine Comment: Reason For Exam: Neuro deficits Physical Therapy Evaluation and Treat [CONS] Routine Comment: Reason For Exam: Neuro deficits Primary care physician: BENJAMIN MUÑOZ Hospitalization Condition: Good Pertinent studies: CT scan head unremarkable. CTA head and neck unremarkable. Chest x-ray unremarkable. Cardiac isoenzymes negative. Blood pressure has been optimally controlled without blood pressure medicines. 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 Patient has not had any symptoms like this anytime before. They only lasted for several hours and were mild. Patient has adequate strength now. No facial numbness. No vision changes no chest pain. Patient work-up in ED was unremarkable with negative head CT negative cardiac enzymes normal echocardiogram normal CTA. Blood pressure has been normal throughout hospital stay 132/83 at present. No symptoms. Patient could be followed up as outpatient with primary care physician in [place]. Disposition: HOME / SELF CARE / HOMELESS Final Discharge Diagnosis (Prints w/discharge instructions): 1. Anxiety #2 left facial numbness #3 hypertension #4 obesity - Discharge Diagnoses (1) Acute coronary syndrome Status: Acute Comment: No chest pain normal blood pressure normal echo. No symptoms. No shortness of breath. Patient states never really had chest pain. (2) BMI 37.0-37.9, adult Status: Acute Comment: Decrease carbohydrate intake. Patient runs approximately 2 miles 3 times a week. No pain. (3) Hypertension Status: Acute Comment: Patient is not hypertensive at this time. Would not discharge on medical management. Will follow with primary care physician and also do 3-day blood pressure check follow-up with primary care physician with results patient was very worked up anxious at work. Anxiety is the problem. (4) Left arm numbness Status: Acute Comment: Secondary to anxiety has resolved only lasted less than an hour. (5) Left facial numbness Status: Acute Core Measure Documentation - Palliative Care Palliative Care/ Comfort Measures: Not Applicable - Core Measures Any of the following diagnoses?: none Exam - Constitutional Vitals: Temp Pulse Resp BP Pulse Ox 98.3 F 88 19 134/88 99 11/28/20 20:48 11/29/20 11:56 11/29/20 11:56 11/29/20 11:56 11/29/20 11:56 General appearance: Present: no acute distress, well-nourished - EENT Eyes: Present: PERRL ENT: hearing intact, clear oral mucosa - Neck Neck: Present: supple, normal ROM - Respiratory Respiratory effort: normal Respiratory: bilateral: CTA - Cardiovascular Heart Sounds: Present: S1 & S2. Absent: rub, click - Extremities Extremities: pulses symmetrical, No edema Peripheral Pulses: within normal limits - Abdominal General gastrointestinal: Present: soft, non-tender, non-distended, normal bowel sounds Male genitourinary: Present: normal - Integumentary Integumentary: Present: clear, warm, dry - Musculoskeletal Musculoskeletal: gait normal, strength equal bilaterally - Psychiatric Psychiatric: appropriate mood/affect, intact judgment & insight - Neurologic Neurologic: CNII-XII intact, moves all extremities Plan Activity: no restrictions Weight Bearing Status: Full Weight Bearing Diet: regular
[2020-11-29 14:50] VITALS: BP 132/84
[2020-11-30] MEDS: IPRATROPIUM/ALBUTEROL SULFATE 3 ML AMPUL.NEB IH SCH (06:35)
[2020-11-30] MEDS ORDERED: ASPIRIN EC 325 MG TAB PO SCH (10:00)
--- NOTE | 2020-12-01 09:43 | Electrocardiograph Report ---
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
== END 2020-11-29 15:00 | disposition home or self-care (01) ==
LOC: ED 19:57 → 4A 11-29 04:40
PROVIDERS: ADMIT Hospitalist; ATTEND Internal Medicine
DX: I24.9 Acute ischemic heart disease, unspecified (principal); I10 Essential (primary) hypertension; E66.9 Obesity, unspecified; R20.0 Anesthesia of skin; Z79.82 Long term (current) use of aspirin; Z68.37 Body mass index [BMI] 37.0-37.9, adult; Z79.899 Other long term (current) drug therapy; Z98.890 Other specified postprocedural states
CPT/HCPCS: 36415; 70450; 70496; 70498; 71046; 80048; 80053; 84484; 85025; 93005; 93306; 97165; 97535; 99285; G0378; J7040; Q9967; 85007